=== PATIENT | male | born 1985 | race Caucasian/White ===

== ENCOUNTER 2017-11-28 18:15 | Emergency (ER) | payer OTHER ==
[~2017-11-28] VITALS: Ht 185.4 cm; Wt 90.0 kg
[2017-11-28] MEDS ORDERED: normal saline 1000ML IV soln IVB ONE ×2 (19:10)
[2017-11-28] MEDS ORDERED: ketorolac trometh. 30mg/ml inj. IV ONE (19:10)
[2017-11-28] MEDS ORDERED: metoclopramide 5 mg/ml inj IV ONE (19:10)
[2017-11-28] MEDS ORDERED: LORazepam 2 mg/ml vial IV ONE (19:10)
[2017-11-28] MEDS ORDERED: diphenhydrAMINE 50 mg/ml inj IV ONE (19:10)
[2017-11-28] MEDS ORDERED: glycopyrrolate 0.2mg/ml inj IV ONE (19:10)
[2017-11-28 19:20] LABS: BASOPHILS % (AUTO) 0 % (0-1); EOSINOPHILS # (AUTO) 0.2 X10'3 (0-0.9); EOSINOPHILS % (AUTO) 1.5 % (0-6); HEMATOCRIT 46.6 % (42.0-52.0); HEMOGLOBIN 16.1 g/dl (14.0-17.9); LYMPHOCYTES # (AUTO) 0.8 X10'3 (1.1-4.8); LYMPHOCYTES % (AUTO) 4.9 % (21-51); MEAN CORPUSCULAR HEMOGLOBIN 31.3 PG (27.0-31.0); MEAN CORPUSCULAR HGB CONC 34.6 % (33.0-36.5); MEAN CORPUSCULAR VOLUME 90.3 FL (78-98); MEAN PLATELET VOLUME 8.7 FL (7.4-10.4); MONOCYTES # (AUTO) 0.4 X10'3 (0-0.9); MONOCYTES % (AUTO) 2.8 % (2-12); NEUTROPHILS # (AUTO) 13.8 X10'3 (1.8-7.7); NEUTROPHILS % (AUTO) 90.8 % (42-75); PLATELET COUNT 206 X10'3 (140-440); RED BLOOD COUNT 5.16 X10'6 (4.70-6.10); RED CELL DISTRIBUTION WIDTH 12.2 % (11.5-14.5); WHITE BLOOD COUNT 15.2 X10'3 (4.5-11.0)
[2017-11-28 19:36] LABS: ALANINE AMINOTRANSFERASE 22 U/L (12-78); ALBUMIN/GLOBULIN RATIO 1.6 (1.1-1.5); ALKALINE PHOSPHATASE 65 IU/L (46-116); ANION GAP 12 (8-16); ASPARTATE AMINO TRANSFERASE 16 U/L (10-37); BILIRUBIN,TOTAL 0.9 MG/DL (0.1-1.0); BLOOD UREA NITROGEN 11 MG/DL (7-18); CALCIUM 9.4 MG/DL (8.5-10.1); CHLORIDE 101 MMOL/L (99-107); GLUCOSE 127 MG/DL (70-104); POTASSIUM 3.4 MMOL/L (3.5-5.1); SODIUM 140 MMOL/L (135-145); TOTAL CARBON DIOXIDE 27.1 MMOL/L (24-32); TOTAL PROTEIN 8.1 G/DL (6.4-8.2); eGFR 86 ML/MIN
[2017-11-28] MEDS ORDERED: CIPR-230 PO (20:43)
[2017-11-28] MEDS ORDERED: DICY10CA88 PO (20:43)
[2017-11-28] MEDS ORDERED: ONDA4TAB12 PO (20:43)
[2017-11-28 20:50] VITALS: BP 143/65
== END 2017-11-28 20:52 | disposition home or self-care (01) ==
LOC: ER 18:15
DX: R10.9 Unspecified abdominal pain (principal); R11.0 Nausea; R06.02 Shortness of breath; R11.10 Vomiting, unspecified
CPT/HCPCS: 36415; 80053; 85025; 87502; 87503; 96361; 96374; 96375; 99285; J1200; J1885; J2060; J3490; J7030